=== PATIENT | female | born 1965 | race Caucasian/White ===

== ENCOUNTER 2019-04-12 00:39 | Emergency (ER) | payer BC ==
[2019-04-12 01:27] LABS: BLOOD UREA NITROGEN,BUN 11 mg/dL (7.0-18.0); CARBON DIOXIDE,CO2 22.6 mmol/L (21.0-32.0); CHLORIDE,CL 105 mmol/L (98-107); GLUCOSE RANDOM 118 mg/dL (74-106); POTASSIUM,K 3.6 mmol/L (3.5-5.1); SODIUM,NA 139 mmol/L (136-145)
--- NOTE | 2019-04-12 01:53 | CR ---
INDICATION: SOB TECHNIQUE: Chest 1 view. COMPARISON: None. FINDINGS: Cardiovascular and mediastinum: Heart size and vasculature are normal in caliber and appearance. Mediastinum is within normal limits. Lungs and pleural space: Lungs are clear. No sign of infiltrate or mass. No sign of pleural effusion. No pneumothorax. Bones and soft tissues: No significant findings. IMPRESSION: Unremarkable chest. Dictated by: Dakota Rajput MD @ 04/12/2019 01:51:41 (Electronically Signed)
--- NOTE | 2019-04-12 02:25 | EDM.PDOC ---
ED HPI GENERAL MEDICAL PROBLEM - General Chief Complaint: Chest Pain Stated Complaint: HEART IS RACING Time Seen by Provider: 04/12/19 01:04 Source of Information: Reports: Patient History Limitations: Reports: No Limitations - History of Present Illness INITIAL COMMENTS - FREE TEXT/NARRATIVE: Patient states she feels very anxious for the past 2 days. Duration: Intermittent Severity: Mild Improves with: Reports: None Worsens with: Reports: None Associated Symptoms: Reports: No Other Symptoms - Related Data Allergies Allergy/AdvReac Type Severity Reaction Status Date / Time No Known Allergies Allergy Verified 04/12/19 00:48 Home Meds: Home Meds Pantoprazole Sodium [Protonix] 20 mg PO DAILY 04/12/19 [History] buPROPion [Wellbutrin SR] 150 mg PO DAILY 04/12/19 [History] Past Medical History - Past Health History Medical/Surgical History: Denies Medical/Surgical History Social & Family History - Tobacco Use Smoking Status *Q: Current Every Day Smoker Years of Tobacco use: 25 Packs/Tins Daily: 0.8 - Caffeine Use Caffeine Use: Reports: Soda - Recreational Drug Use Recreational Drug Use: No ED ROS GENERAL - Review of Systems Review Of Systems: See Below Constitutional: Reports: No Symptoms HEENT: Reports: No Symptoms Respiratory: Reports: No Symptoms Cardiovascular: Reports: No Symptoms Endocrine: Reports: No Symptoms, Polyuria Musculoskeletal: Reports: No Symptoms Skin: Reports: No Symptoms Neurological: Reports: No Symptoms Psychiatric: Reports: Anxiety, Confusion Hematologic/Lymphatic: Reports: No Symptoms Immunologic: Reports: No Symptoms ED EXAM, GENERAL - Physical Exam Exam: See Below Exam Limited By: No Limitations General Appearance: Alert, WD/WN, No Apparent Distress Ear Exam: Bilateral Ear: TM normal Nose: Normal Inspection, Normal Mucosa, No Blood Throat/Mouth: Normal Inspection, Normal Lips Head: Atraumatic, Normocephalic Neck: Normal Inspection, Supple Respiratory/Chest: No Respiratory Distress, Lungs Clear, No Accessory Muscle Use Cardiovascular: Normal Peripheral Pulses Rectal (Female) Exam: Deferred Back Exam: Normal Inspection Extremities: Normal Inspection, Normal Range of Motion, No Pedal Edema Neurological: Alert, Oriented, CN II-XII Intact, Normal Cognition, Normal Reflexes Psychiatric: Normal Affect, Normal Mood Skin Exam: Warm, Dry, Intact, Normal Color Course - Vital Signs Last Recorded V/S: Last Vital Signs Temp 97.3 F 04/12/19 00:45 Pulse 80 04/12/19 00:50 Resp 16 04/12/19 00:45 BP 160/81 H 04/12/19 00:50 Pulse Ox 95 04/12/19 00:45 - Orders/Labs/Meds Orders: Active Orders 24 hr Category Date Time Status EKG 12 Lead [EKG Documentation Completion] [RC] STAT Care 04/12/19 00:52 Active Labs: Laboratory Tests 04/12/19 04/12/19 Range/Units 00:45 00:45 WBC 14.23 H (4.0-11.0) K/uL RBC 4.50 (4.30-5.90) M/uL Hgb 15.1 (12.0-16.0) g/dL Hct 42.9 (36.0-46.0) % MCV 95.3 (80.0-98.0) fL MCH 33.6 H (27.0-32.0) pg MCHC 35.2 (31.0-37.0) g/dL RDW Std Deviation 42.9 (28.0-62.0) fl RDW Coeff of Hussein 13 (11.0-15.0) % Plt Count 249 (150-400) K/uL MPV 9.80 (7.40-12.00) fL Neut % (Auto) 60.2 (48.0-80.0) % Lymph % (Auto) 31.8 (16.0-40.0) % Weber % (Auto) 6.9 (0.0-15.0) % Eos % (Auto) 0.9 (0.0-7.0) % Baso % (Auto) 0.2 (0.0-1.5) % Neut # (Auto) 8.6 H (1.4-5.7) K/uL Lymph # (Auto) 4.5 H (0.6-2.4) K/uL Weber # (Auto) 1.0 H (0.0-0.8) K/uL Eos # (Auto) 0.1 (0.0-0.7) K/uL Baso # (Auto) 0.0 (0.0-0.1) K/uL Sodium 139 (136-145) mmol/L Potassium 3.6 (3.5-5.1) mmol/L Chloride 105 (98-107) mmol/L Carbon Dioxide 22.6 (21.0-32.0) mmol/L BUN 11 (7.0-18.0) mg/dL Creatinine 0.8 (0.6-1.0) mg/dL Est Cr Clr Drug Dosing TNP Estimated GFR (MDRD) > 60.0 ml/min Glucose 118 H (74-106) mg/dL Calcium 9.2 (8.5-10.1) mg/dL Total Bilirubin 0.3 (0.2-1.0) mg/dL AST 19 (15-37) IU/L ALT 40 (14-63) IU/L Alkaline Phosphatase 84 (46-116) U/L Troponin I < 0.050 (0.000-0.056) ng/mL Total Protein 7.5 (6.4-8.2) g/dL Albumin 3.7 (3.4-5.0) g/dL Globulin 3.8 (2.6-4.0) g/dL Albumin/Globulin Ratio 1.0 (0.9-1.6) Departure - Departure Time of Disposition: 02:24 Disposition: Home, Self-Care 01 Clinical Impression: Atypical chest pain Instructions: Chest Wall Pain, [id number] Referrals: Girish Beatty MD [Primary Care Provider] - Sepsis Event Note - Evaluation Sepsis Screening Result: No Definite Risk - Focused Exam Vital Signs: Vital Signs Temp Pulse Resp BP Pulse Ox 04/12/19 00:50 80 160/81 H 04/12/19 00:45 97.3 F 95 16 181/94 H 95 Date Exam was Performed: 04/12/19 Time Exam was Performed: 02:21 - My Orders Last 24 Hours: My Active Orders 04/12/19 00:52 EKG 12 Lead [EKG Documentation Completion] [RC] STAT - Assessment/Plan Last 24 Hours: My Active Orders 04/12/19 00:52 EKG 12 Lead [EKG Documentation Completion] [RC] STAT
== END 2019-04-12 02:35 | disposition home or self-care (01) ==
LOC: MW.ED 00:39
DX: R07.89 Other chest pain (principal); F17.210 Nicotine dependence, cigarettes, uncomplicated; Z79.899 Other long term (current) drug therapy
CPT/HCPCS: 36415; 71045; 71045-26; 80053; 84484; 85025; 93005; 99283; 99285-25

== ENCOUNTER 2020-12-30 08:15 | Day surgery (SDC) | payer BC ==
[~2020-12-30 08:15] MED LIST: Lactated Ringers 1,000 ML IV SCH; Lidocaine 2% 5 ML SDV ONE; Sodium Chloride 0.9% 10 ML SDV IV PRN; Sodium Chloride 0.9% 10 ML Syringe FLUSH PRN; Sodium Chloride 0.9% 2.5 ML Syringe FLUSH PRN; propofoL 50 ML ONE
--- NOTE | 2020-12-30 08:54 | PCM.PREANE ---
Preanesthetic Assessment - Anesthesia/Transfusion/Family Hx Anesthesia History: Prior Anesthesia Without Reaction Family History of Anesthesia Reaction: No Transfusion History: No Prior Transfusion(s) - Review of Systems General: No Symptoms Pulmonary: No Symptoms Cardiovascular: No Symptoms Gastrointestinal: No Symptoms Neurological: No Symptoms Other: Reports: None - Physical Assessment NPO Status Date: 12/30/20 NPO Status Time: 00:00 Vital Signs: Last Vital Signs Temp 97.2 F 12/30/20 08:23 Pulse 78 12/30/20 08:23 Resp 15 12/30/20 08:23 BP 127/82 12/30/20 08:23 Pulse Ox 96 12/30/20 08:23 Height: 5 ft 10 in Weight: 199 lb ASA Class: 2 Mental Status: Alert & Oriented x3 Airway Class: Mallampati = 2 Dentition: Reports: Normal Dentition ROM/Head Extension: Full Lungs: Clear to Auscultation, Normal Respiratory Effort Cardiovascular: Regular Rate, Regular Rhythm - Allergies Allergies/Adverse Reactions: Allergies Allergy/AdvReac Type Severity Reaction Status Date / Time codeine Allergy Nausea and Verified 12/24/20 09:34 Vomiting - Acknowledgements Anesthesia Type Planned: General Anesthesia Pt an Appropriate Candidate for the Planned Anesthesia: Yes Alternatives and Risks of Anesthesia Discussed w Pt/Guardian: Yes Pt/Guardian Understands and Agrees with Anesthesia Plan: Yes PreAnesthesia Questionnaire - Past Health History Medical/Surgical History: Denies Medical/Surgical History HEENT History: Reports: None Cardiovascular History: Reports: None Respiratory History: Reports: None Gastrointestinal History: Reports: GERD Genitourinary History: Reports: None Musculoskeletal History: Reports: None Neurological History: Reports: None Psychiatric History: Reports: None Endocrine/Metabolic History: Reports: Other (See Below) Other Endocrine/Metabolic History: prediabetic Hematologic History: Reports: None Immunologic History: Reports: None Oncologic (Cancer) History: Reports: None Dermatologic History: Reports: Other (See Below) - Past Surgical History Head Surgeries/Procedures: Reports: None HEENT Surgical History: Reports: Other (See Below) Other HEENT Surgeries/Procedures: right ear surgery Cardiovascular Surgical History: Reports: None Respiratory Surgical History: Reports: None GI Surgical History: Reports: None Female Surgical History: Reports: None Endocrine Surgical History: Reports: None Neurological Surgical History: Reports: None Musculoskeletal Surgical History: Reports: None Oncologic Surgical History: Reports: None Dermatological Surgical History: Reports: Other (See Below) - SUBSTANCE USE Tobacco Use Status *Q: Current Every Day Tobacco User Tobacco Use Within Last Twelve Months: Cigarettes Recreational Drug Use History: No - HOME MEDS Home Medications: Home Meds Ascorbic Acid [Vitamin C] 1,000 mg PO DAILY 12/24/20 [History] Famotidine [Pepcid] 20 mg PO DAILY PRN 12/24/20 [History] Zinc 100 mg PO DAILY 12/24/20 [History] - CURRENT (IN HOUSE) MEDS Current Meds: Current Medications Lactated Ringer's (Ringers, Lactated) 1,000 mls @ 125 mls/hr IV ASDIRECTED WILLI Last Admin: 12/30/20 08:29 Dose: 125 mls/hr Documented by: Sodium Chloride (Sodium Chloride 0.9% 10 Ml Syringe) 10 ml FLUSH ASDIRECTED PRN PRN Reason: Keep Vein Open Sodium Chloride (Sodium Chloride 0.9% 2.5 Ml Syringe) 2.5 ml FLUSH ASDIRECTED PRN PRN Reason: Keep Vein Open Sodium Chloride (Sodium Chloride 0.9% 10 Ml Syringe) 10 ml FLUSH ASDIRECTED PRN PRN Reason: Keep Vein Open Sodium Chloride (Sodium Chloride 0.9% 2.5 Ml Syringe) 2.5 ml FLUSH ASDIRECTED PRN PRN Reason: Keep Vein Open Sodium Chloride (Sodium Chloride 0.9% 10 Ml Sdv) 10 ml IV ASDIRECTED PRN PRN Reason: IV Use Discontinued Medications Propofol (Diprivan 50 Ml) Confirm Administered Dose 50 mls @ as directed .ROUTE .STK-MED ONE Stop: 12/30/20 07:28 Lidocaine (Lidocaine 2% 5 Ml Sdv) Confirm Administered Dose 5 ml .ROUTE .STK-MED ONE Stop: 12/30/20 07:37
[2020-12-30] MEDS ORDERED: cefOXitin 1 GM Vial ONE (09:45)
[2020-12-30] MEDS ORDERED: Propofol 200 MG/20 ML SDV ONE (09:54)
--- NOTE | 2020-12-30 10:19 | PCM.POSTAN ---
POST ANESTHESIA ASSESSMENT - MENTAL STATUS Mental Status: Alert, Oriented - VITAL SIGNS Vital Signs: Last Vital Signs Temp 97.2 F 12/30/20 08:23 Pulse 78 12/30/20 08:23 Resp 15 12/30/20 08:23 BP 127/82 12/30/20 08:23 Pulse Ox 96 12/30/20 08:23 - RESPIRATORY Respiratory Status: Respiratory Rate WNL, Airway Patent, O2 Saturation Stable - CARDIOVASCULAR CV Status: Pulse Rate WNL, Blood Pressure Stable - GASTROINTESTINAL GI Status: Vomiting - POST OP HYDRATION Hydration Status: Adequate & Stable
--- NOTE | 2020-12-30 10:20 | PCM.OPNOTE ---
- General Post-Op/Procedure Note Date of Surgery/Procedure: 12/30/20 Operative Procedure(s): Screening colonoscopy Findings: Diverticulosis, appendicile polyp, cecal polyp, ascending colon polyp x 2, transverse colon polyp, rectal polyp Pre Op Diagnosis: Screening colonoscopy Post-Op Diagnosis: Diverticulosis, appendicile polyp, cecal polyp, ascending colon polyp x 2, transverse colon polyp, rectal polyp Anesthesia Technique: MAC Primary Surgeon: Heaven Ennis Condition: Good
--- NOTE | 2020-12-30 10:20 | PCM48HPAN ---
Post Anesthesia Note - EVALUATION WITHIN 48HRS OF ANESTHETIC Vital Signs in Normal Range: Yes Patient Participated in Evaluation: Yes Respiratory Function Stable: Yes (Secretions and mild coughing) Airway Patent: Yes Cardiovascular Function Stable: Yes Hydration Status Stable: Yes Pain Control Satisfactory: Yes Nausea and Vomiting Control Satisfactory: Yes Mental Status Recovered: Yes Vital Signs: Last Vital Signs Temp 97.2 F 12/30/20 08:23 Pulse 78 12/30/20 08:23 Resp 15 12/30/20 08:23 BP 127/82 12/30/20 08:23 Pulse Ox 96 12/30/20 08:23
--- NOTE | 2020-12-30 16:29 | OR ---
SURGEON: HEAVEN ENNIS MD DATE OF PROCEDURE: 12/30/2020 PREOPERATIVE DIAGNOSIS: Screening colonoscopy. POSTOPERATIVE DIAGNOSES: 1. Appendiceal polyp. 2. Cecal polyp. 3. Ascending colon polyps x2. 4. Transverse colon polyp. 5. Rectal polyp. 6. Diverticulosis. PROCEDURE PERFORMED: Screening colonoscopy with polypectomy. PRIMARY SURGEON: Heaven Ennis MD ANESTHESIA: MAC. INSTRUMENT USED: Olympus colonoscope. EXTENT OF EXAM: To the cecum. PREPARATION: Good. LIMITATIONS: None. INDICATIONS: The patient is a 55-year-old female who presented to clinic for a screening colonoscopy. I explained the procedure, expected perioperative course, and the risks. She verbalized understanding and wishes to proceed. PROCEDURE IN DETAIL: The patient was brought to the endoscopy suite and placed in the left lateral decubitus position. A time-out was completed verifying the patient's name, age, date of , allergies, and procedure to be performed. Monitored anesthesia care was induced, and continuous oxygen was provided via face mask throughout the procedure. After adequate sedation was achieved, a digital rectal exam was performed. This exam was within normal limits. A well-lubricated colonoscope was inserted into the rectum and advanced under direct visualization to the level of the cecum. The cecum was identified by both visual and anatomic landmarks. A photograph was taken of the cecal cap. I was able to retroflex the scope within the cecum, and a photograph was taken of the terminal ileum, which appeared normal. Upon straightening the scope, I noticed a superficial mucosal abrasion from my retroflexion. This area was irrigated. There was no evidence of any perforation. The patient was noted to have a small sessile polyp at the base of the appendiceal orifice. This was removed in piecemeal fashion using cold biopsy forceps. Adjacent to this in the cecal cap, the patient had a small sessile polyp. This was removed in piecemeal fashion using cold biopsy forceps. On the ileocecal fat pad, there was a very small area. I was unable to tell if this was hyperplastic versus a polyp. It was removed using cold biopsy forceps and sent to Pathology labeled as ascending colon polyp #2. The patient did have a larger more rounded polyp in the proximal ascending colon just beyond the cecal cap. This was removed in piecemeal fashion using cold biopsy forceps and labeled as ascending colon polyp #1. In the mid transverse colon, the patient was noted to have 2 small sessile polyps in close approximation to one another. Both were removed in piecemeal fashion and placed in the same jar labeled as transverse colon polyp. The patient had diverticulosis throughout the distal half of her colon. Most of the diverticula were centered within the sigmoid colon. The scope was brought into the rectum, and a small sessile polyp was noted. This was removed in piecemeal fashion using a cold biopsy forceps and sent to Pathology labeled as rectal polyp. The scope was then retroflexed within the rectum to allow visualization of the anal canal opening. This appeared normal, and a photograph was taken. The scope was straightened out and fully withdrawn. The cecum to anus time was greater than 6 minutes. The patient tolerated the procedure well and was transferred to the PACU in stable condition. ENDOSCOPIC DIAGNOSES: 1. Appendiceal polyp. 2. Cecal polyp. 3. Ascending colon polyps x2. 4. Transverse colon polyp. 5. Rectal polyp. 6. Diverticulosis. RECOMMENDATIONS: Follow up in clinic in 2 weeks. KAMLA DOCKERY /[id number]
== END 2020-12-30 11:00 | disposition home or self-care (01) ==
LOC: MW.SDS 08:15
PROVIDERS: ATTEND Surgery
DX: Z12.11 Encounter for screening for malignant neoplasm of colon (principal); D12.0 Benign neoplasm of cecum; D12.2 Benign neoplasm of ascending colon; K62.1 Rectal polyp; K57.30 Diverticulosis of large intestine without perforation or abscess without bleeding; K21.9 Gastro-esophageal reflux disease without esophagitis; F17.210 Nicotine dependence, cigarettes, uncomplicated; Z88.5 Allergy status to narcotic agent; Z79.899 Other long term (current) drug therapy
CPT/HCPCS: 00812; 88305; J0694; J2704; J7120

== ENCOUNTER 2022-02-18 07:20 | Day surgery (SDC) | payer BC ==
[~2022-02-18 07:20] MED LIST changes: +Propofol 200 MG/20 ML SDV ONE; -Sodium Chloride 0.9% 10 ML SDV IV PRN; +Sodium Chloride 0.9% 20 ML SDV IV PRN; -propofoL 50 ML ONE
[2022-02-18] MEDS ORDERED: fentaNYL 100 MCG/2 ML SDV ONE (07:21)
== END 2022-02-18 09:38 | disposition home or self-care (01) ==
LOC: MW.SDS 07:20
PROVIDERS: ATTEND Surgery
DX: K44.9 Diaphragmatic hernia without obstruction or gangrene (principal); K21.9 Gastro-esophageal reflux disease without esophagitis; F17.210 Nicotine dependence, cigarettes, uncomplicated; E66.9 Obesity, unspecified; R73.03 Prediabetes; Z68.29 Body mass index [BMI] 29.0-29.9, adult; Z88.5 Allergy status to narcotic agent; Z98.890 Other specified postprocedural states; Z79.899 Other long term (current) drug therapy
CPT/HCPCS: 43239; J2704; J3010; J7120; 00731

== ENCOUNTER 2024-01-31 07:13 | Day surgery (SDC) | payer BC ==
[~2024-01-31 07:13] MED LIST changes: -Lactated Ringers 1,000 ML IV SCH; -Lidocaine 2% 5 ML SDV ONE; -Propofol 200 MG/20 ML SDV ONE
[2024-01-31] MEDS ORDERED: propofoL 50 ML ONE (07:46)
[2024-01-31] MEDS: Lactated Ringers 1,000 ML IV SCH (07:53)
[2024-01-31] MEDS ORDERED: fentaNYL 100 MCG/2 ML SDV ONE (09:05)
== END 2024-01-31 09:55 | disposition home or self-care (01) ==
LOC: MW.SDS 07:13
PROVIDERS: ATTEND Surgery
DX: Z12.11 Encounter for screening for malignant neoplasm of colon (principal); D12.4 Benign neoplasm of descending colon; K57.30 Diverticulosis of large intestine without perforation or abscess without bleeding; Z86.0100 Personal history of colon polyps, unspecified; K21.9 Gastro-esophageal reflux disease without esophagitis; Z79.899 Other long term (current) drug therapy; Z88.5 Allergy status to narcotic agent
CPT/HCPCS: 45385; J2704; J3010; J7120; 00811